=== PATIENT | female | born 2000 | race Caucasian/White ===

== ENCOUNTER 2024-11-11 21:42 | Emergency (ER) | payer SELFPAY ==
[2024-11-11 21:43] VITALS: BP 128/91; PULSE 108; RESP 16; TEMP 35.8; O2SAT 99
--- NOTE | 2024-11-11 22:46 | ED.RN ---
pt and significant other politely stated they no longer want to wait to be seen in ED.
== END 2024-11-11 22:46 | disposition left against medical advice (07) ==
LOC: ED 22:51
DX: Z53.21 Procedure and treatment not carried out due to patient leaving prior to being seen by health care provider (principal)

== ENCOUNTER 2025-06-21 23:17 | Emergency (ER) | payer OTHER, SELFPAY ==
[2025-06-21 23:17] VITALS: BP 143/100; PULSE 78; RESP 16; TEMP 36.8; O2SAT 100; BMI 26.2
[2025-06-21 23:30] VITALS: BP 143/95; PULSE 74; RESP 16; O2SAT 99
--- NOTE | 2025-06-22 00:06 | ED.VIS.CHEST ---
HPI History of Present Illness Chief Complaint: Chest Pain Informant: patient Onset/Context/Timing Onset: Weeks Activity at onset: gradual Timing: Intermittent Quality: Positive for Sharp Location: Substernal Current Severity: Gone Maximum Severity: Mild Worsened By: Nothing Relieved By: Nothing Associated Symptoms: Negative for Nausea, Vomiting, Diaphoresis, Dyspnea, Cough, Fever, Lightheadedness, Acid Reflux or Palpitations Narrative Prior Similar Symptoms: Yes Recent Illness/Hospitalization: No CVD Risk Factors: Negative for Hypertension, Diabetes or Hypercholesterolemia PE Risk Factors: Negative for Recent Travel/Surgery, Recent Immobilization, Prior DVT or PE, Cancer or OCP + Smoking + >/=35 TAD Risk Factors: Negative for Marfan's Syndrome PFSH PFSH Medical History no medical history no medical history Home Medications ?Medication ?Instructions ?Recorded ?Last Taken ?Type buspirone 5 mg tablet 5 mg PO QHS 06/21/25 Unknown History multivitamin 1 tab PO DAILY 06/21/25 Unknown History Allergy/AdvReac Type Severity Reaction Status Date / Time No Known Allergies Allergy Verified 06/21/25 23:19 Family History no significant family his Surgical History no surgical history Social History Smoking Status: Never smoker ROS ROS ED ROS Narrative Atypical nonexertional chest pain for about 1-2 weeks on and off. Constitutional Constitutional ED: Denies chills or fever(s) Eyes Eyes: Reports none ENT ENT ED: Denies ear pain Cardiovascular Cardiovascular: Reports as per HPI and chest pain; Denies palpitations or racing heartbeat Respiratory/Chest Respiratory/Chest: Denies cough, dyspnea or dyspnea on exertion Gastrointestinal Gastrointestinal: Denies abdominal pain Genitourinary Genitourinary ED: Denies dysuria or hematuria Musculoskeletal Musculoskeletal: Denies arthralgias or back pain Integumentary Denies abscess or Abrasions Neurologic Neurologic: Denies headache(s) Psychiatric Psychiatric: Denies anxiety or depression Endocrine Endocrinology: Denies cold intolerance Hematologic/Lymphatic Hematologic/Lymphatic: Denies easy bleeding, easy bruising or lymphadenopathy Allergic/Immunologic Allergic/Immunologic ED: Denies mouth swelling, tongue swelling or urticaria EXAM Physical Exam Narrative Exam Narrative: 24-year-old female vital signs are stable afebrile. Pulse ox 100% on room air no signs hypoxia no distress. Sitting upright in bed. Appears comfortable. H EENT exam pupils round react light. Moist mutes membranes. Neck nontender no JVD. No lymphadenopathy. Lungs clear to auscultation bilaterally. Heart regular rhythm no murmur chest wall nontender. No ecchymosis or bruising. No subcu air crepitus. No reproducible pain. Currently pain-free symptom-free. Ribs nontender. Abdomen soft nontender normal bowel sounds without peritoneal signs. Moving all 4 extremities. Normal underwriter solicitation director strength. Normal radial pulses equal symmetrical. Calves nontender without edema or cords. Dorsi plantarflexion intact. Back nontender. Neurologically she is awake alert. Answering questions following commands. Const Vital Signs: 06/21/25 23:17 06/21/25 23:29 06/21/25 23:30 Temperature 98.2 F Temperature Source Oral Pulse Rate 78 74 Respiratory Rate 16 16 Respiratory Effort Normal Non-Labored Respiratory Pattern Normal Blood Pressure 143/100 H 143/95 H Blood Pressure Mean 114 111 Pulse Ox 100 99 Oxygen Delivery Method Room Air Room Air 06/22/25 00:17 Temperature 98 F Temperature Source Pulse Rate 76 Respiratory Rate 16 Respiratory Effort Respiratory Pattern Blood Pressure 113/60 Blood Pressure Mean 77 Pulse Ox 99 Oxygen Delivery Method Positive well nourished and well developed; Negative for obese, cachectic, contractures or unkempt General Appearance ED: well developed; Negative for unkempt, cachectic, contractures or pallor Nutritional Appearance: Negative for cachectic or obese HEENT Reports moist mucous membranes normocephalic and atraumatic Eyes PERRL and EOMs intact bilaterally Neck no lymphadenopathy, supple and no JVD Chest Wall inspection of chest normal and palpation of chest normal Chest: Negative for tenderness Resp normal respiratory effort and clear to auscultation bilaterally Cardio regular rate, regular rhythm, S1 normal heart sound, S2 normal heart sound and no murmurs Peripheral Pulses: pulses 2+ throughout GI normal to inspection, nondistended, normoactive bowel sounds, soft to palpation, non-tender, non-distended and no masses Back/Spine no CVA tenderness and no thoracic nor lumbar tenderness Extremity normal to inspection General Extremety ED: Negative for edema, pulses abnormal or tenderness General Extremity: Negative for edema or pulses abnormal Neuro oriented x3 and CN's II-XII intact bilaterally Sensorium / Orientation: awake, alert, oriented to person, oriented to place and oriented to time; Negative for confused, lethargic or stuporous Motor Exam: strength 5/5 throughout Psych mental status grossly normal Appearance: Negative for unkempt Attitude: No agitated Mood & Affect: Negative for depressed, anxious or tearful Skin no rashes or lesions noted and no wounds General Skin Exam: Negative for jaundice or pallor Rashes: No rashes noted Trauma: Negative for abrasion or laceration MDM MDM MDM Narrative Medical decision making narrative: 24-year-old female with atypical nonreproducible chest pain. Prior cardiac workup at [facility] with an echo and stress test both of which she tells me was negative within the last year. Pain is not reproducible. She has no DVT or PE risk factors she is not . She is not on control pills. She has no leg pain or swelling. She has had no immobilization, hospitalization or surgery. Her exam is completely benign. EKG is normal. Chest x-ray is unremarkable. I do not think she needs any further testing she has had recent lab work done by her primary care's office it has been unremarkable other than slightly low white count. She be discharged home with chest pain uncertain etiology. There is no family history of cardiac disease at a young age. Repeat exam patient is doing well at 1:03 AM. EKG and chest x-ray were unremarkable. Given her prior stents of workup her young age and my low clinical suspicion and normal exam I do not think she needs any further testing she can follow-up with her primary care physician. History & Record Review Discussion w/independent historian: Patient Additional record(s) reviewed:: No prior records Radiography Chest X-Ray - ED: 2 View, Read by ED Physician, Heart, Lungs, Mediastinum, Bony Structures and No Acute Disease Diagnostic Testing: Chest x-ray, 2 views, AP and lateral, interpreted by myself shows no acute abnormality. Normal cardiac silhouette. Normal lung tomlinson. Rhythm Strip Rhythm Strip: Sinus Rhythm Rate: 79 Ectopy: None EKG Initial EKG: Attestation: I personally reviewed and interpreted this EKG as follows: Interpretation: Sinus Rhythm and No Acute Injury Pattern Comments: Normal sinus rhythm rate of 79 no acute signs of SC or ischemia. Prior EKG tracings: not available for review Discharge Plan Triage Chief Complaint: Chest Pain ED Provider: Lane Lizarraga Dx/Rx/DC Orders Clinical Impression: Chest pain Instructions: ED Chest Pain, Uncertain Cause Prescriptions: No Action multivitamin Tablet 1 tab PO DAILY buspirone 5 mg tablet 5 mg PO QHS Primary Care Provider: Ciaran De La Rosa Referrals: Ciaran De La Rosa MD [Primary Care Provider, Family Practice] - As Needed Care Physician,No Primary [Non-Staff, Medical] Activity Restrictions/Additional Instructions: No specific cause for your pain. Follow-up with your primary care provider for further evaluation. Print Language: Mongolian Disposition Disposition: Home, Self Care
[2025-06-22 00:17] VITALS: BP 113/60; PULSE 76; RESP 16; TEMP 36.6; O2SAT 99
--- NOTE | 2025-06-22 00:43 | RAD_ITS ---
PROCEDURE: CHEST PA AND LATERAL 06/22/2025 REASON FOR EXAM: PAIN TECHNIQUE: Procedure Code: RADCXR Modality: DX Procedure: CHEST PA AND LATERAL COMPARISON: None. FINDINGS: The lungs are expanded. There is no demonstrated parenchymal abnormality. There is no demonstrated pleural abnormality. Normal heart and pericardium. Normal mediastinum and sheyla. Normal visualized pulmonary arteries. Normal visualized aortic arch and descending thoracic aorta. Normal visualized thoracic spine. Normal visualized ribs, clavicles, and shoulders. There is no demonstrated abnormality of the visualized soft tissue structures of the upper abdomen. RAD/Chest PA and Lateral IMPRESSION: No evidence for acute abnormality. [facility]
--- NOTE | 2025-06-22 00:46 | EKG12_ITS ---
Test Reason : CP Blood Pressure : */* mmHG Vent. Rate : 79 BPM Atrial Rate : 79 BPM P-R Int : 158 ms QRS Dur : 70 ms QT Int : 368 ms P-R-T Axes : 56 5 38 degrees QTcB Int : 421 ms Normal sinus rhythm with sinus arrhythmia Low voltage QRS Borderline ECG Confirmed by Neal Tinoco ([id number]), news copy editor ELFEGO PIEDRA ([id number]) on 06/23/2025 7:19:26 AM Referred By: Confirmed By: Neal Tinoco
--- NOTE | 2025-06-22 01:05 | PCA ---
NO OLD EKG
[2025-06-22 01:07] VITALS: BP 124/65; PULSE 73; RESP 18; O2SAT 100
== END 2025-06-22 01:10 | disposition home or self-care (01) ==
LOC: ED 06-22 00:24
PROVIDERS: Emergency Provider Emergency Medicine; PCP Family Medicine; Visit Provider Emergency Medicine
DX: R07.9 Chest pain, unspecified (principal)
CPT/HCPCS: 71046; 93005; 99284; A4216